=== PATIENT | female | born 2000 | race Caucasian/White ===

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

== ENCOUNTER → 2020-02-25 | Outpatient (REF) | payer OTHER | LOC: M LAB REF 12:40 | PROVIDERS: ATTEND Physician Assistant | DX: R30.0 Dysuria (principal) ==

== ENCOUNTER → 2020-04-30 | Outpatient (REF) | payer OTHER ==
[2020-04-30 11:08] LABS: BASO # 0.1 10^3/uL (0.0-0.2); BASO % 0.5 % (0.0-1.0); EOS # 0.3 10^3/uL (0.0-0.5); EOS % 2.3 % (0.0-3.0); HEMATOCRIT 45.1 % (36.0-47.0); HEMOGLOBIN 14.4 g/dl (12.0-15.5); LYMPH # 3.1 10^3/uL (1.5-5.0); LYMPH % 29.1 % (24.0-44.0); MEAN CORPUSCULAR HEMOGLOBIN 29.5 pg (27.0-33.0); MEAN CORPUSCULAR HGB CONC 31.9 g/dl (32.0-36.5); MEAN CORPUSCULAR VOLUME 92.4 fl (80.0-96.0); MONO # 0.6 10^3/uL (0.0-0.8); NEUTROPHILS # 6.7 10^3/uL (1.5-8.5); NEUTROPHILS % 61.8 % (36.0-66.0); PLATELET COUNT, AUTOMATED 321 10^3/uL (150-450); RED BLOOD COUNT 4.88 10^6/uL (4.00-5.40); WHITE BLOOD COUNT 10.8 10^3/uL (4.0-10.0)
[2020-04-30 11:39] LABS: ALBUMIN 4.2 GM/DL (3.2-5.2); ALT/SGPT 17 U/L (12-78); BILIRUBIN,TOTAL 0.9 MG/DL (0.2-1.0); BLOOD UREA NITROGEN 8 MG/DL (7-18); CALCIUM LEVEL 9.3 MG/DL (8.5-10.1); CARBON DIOXIDE LEVEL 28 MEQ/L (21-32); CHLORIDE LEVEL 107 MEQ/L (98-107); CHOLESTEROL LEVEL 148 MG/DL (<200); CHOLESTEROL RISK RATIO 2.466 (<5); CREATININE FOR GFR 0.78 MG/DL (0.55-1.30); FREE T4 1.01 NG/DL (0.78-1.33); GLUCOSE, FASTING 78 MG/DL (70-100); HDL CHOLESTEROL 60 MG/DL (>40); LDL CHOLESTEROL 76 MG/DL (<100); NON-HDL-C 88 MG/DL; POTASSIUM SERUM 4.5 MEQ/L (3.5-5.1); SODIUM LEVEL 138 MEQ/L (136-145); THYROID STIMULATING HORMONE 0.574 uIU/ML (0.463-3.98); TOTAL PROTEIN 6.9 GM/DL (6.4-8.2); TRIGLYCERIDES LEVEL 59 MG/DL (<150)
[2020-04-30 11:40] LABS: THYROID PEROXIDASE ANTIBODY 43.3 U/ML (<60.0); TOTAL 25(OH) VITAMIN D 36.8 NG/ML (30.0-100.0)
[2020-04-30 11:42] LABS: PTH INTACT 32.2 PG/ML (18.5-88.0)
[2020-04-30 11:43] LABS: TOTAL T3 94.3 NG/DL (86.0-192.0); VITAMIN B12 LEVEL 486 PG/ML (247-911)
[2020-04-30 12:19] LABS: HEMOGLOBIN A1c 5.1 %
[2020-05-04 10:55] LABS: THYROGLOBULIN ANTIBODY < 15.0 U/ML (<60.0)
== END ==
LOC: M SFHCPLAZ 09:10
PROVIDERS: ATTEND Family Medicine
DX: R63.4 Abnormal weight loss (principal); E55.9 Vitamin D deficiency, unspecified
CPT/HCPCS: 36415; 80053; 80061; 82306; 82607; 83036; 83970; 84439; 84443; 84480; 84681; 85025; 86376; 86800; G0463

== ENCOUNTER → 2020-06-03 | Outpatient (CLI) | payer OTHER ==
--- NOTE | 2020-06-03 13:03 | REPPI ---
INDICATION: SCHEURMANN'S DISEASE COMPARISON: None. TECHNIQUE: AP, lateral, bilateral oblique, and coned-down views of the lumbar spine. FINDINGS: Alignment and lordosis maintained. Vertebral bodies are intact. Disc spaces are relatively normal/age-appropriate. No acute fracture/compression injury or subluxation. No obvious spondylolysis or spondylolisthesis. No significant degenerative changes are appreciated. Incidental Schmorl's node at L2-3. IMPRESSION: Essentially age-appropriate lumbosacral spine radiograph series. <Electronically signed by Zi Dugan > 06/03/20 1703
--- NOTE | 2020-06-03 13:04 | REPPI ---
INDICATION: SCHEURMANN'S DISEASE COMPARISON: None. TECHNIQUE: AP, lateral, and swimmers views. FINDINGS: Alignment and kyphosis is maintained. Vertebral bodies intact. No acute fracture / compression injury or subluxation. No degenerative changes. Paravertebral soft tissues are normal. IMPRESSION: Normal thoracic spine series. <Electronically signed by Zi Dugan > 06/03/20 1300
--- NOTE | 2020-06-03 13:04 | REPPI ---
INDICATION: SCHEURMANN'S DISEASE. COMPARISON: None. TECHNIQUE: AP views of the thoracic and lumbar spine. FINDINGS: No evidence for scoliosis. Vertebral bodies are normal in the frontal projection. No paravertebral soft tissue abnormalities noted. IMPRESSION: No evidence for scoliosis. <Electronically signed by Zi Dugan > 06/03/20 [id number]
[2020-06-03 17:22] LABS: APPEARANCE, URINE CLEAR (CLEAR); BACTERIA, URINE AUTO NEGATIVE (NEGATIVE); BILIRUBIN, URINE AUTO NEGATIVE (NEGATIVE); BLOOD, URINE BLOOD NEGATIVE (NEGATIVE); COLOR, URINE YELLOW (YELLOW); GLUCOSE, URINE (UA) AUTO NEGATIVE (NEGATIVE); KETONE, URINE AUTO TRACE mg/dL (NEGATIVE); LEUKOCYTE ESTERASE, URINE AUTO NEGATIVE (NEGATIVE); MUCUS, URINE SMALL (NEGATIVE); NITRITE, URINE AUTO NEGATIVE (NEGATIVE); PROTEIN, URINE AUTO NEGATIVE (NEGATIVE); RBC, URINE AUTO 0 /HPF (0-3); SPECIFIC GRAVITY URINE AUTO 1.018 (1.002-1.035); SQUAMOUS EPITHELIAL CELL UR AU 0 /HPF (0-6); UROBILINOGEN, URINE AUTO 0.2 mg/dL (0.0-2.0); WBC, URINE AUTO 1 /HPF (0-3)
== END ==
LOC: M PLAIMG 11:59
PROVIDERS: ATTEND Family Medicine
DX: N30.90 Cystitis, unspecified without hematuria (principal); M42.00 Juvenile osteochondrosis of spine, site unspecified

== ENCOUNTER → 2020-06-15 | Outpatient (CLI) | payer SELFPAY | LOC: M LABSMTC 11:28 | PROVIDERS: ATTEND Pediatrics | DX: Z20.822 Contact with and (suspected) exposure to COVID-19 (principal) ==

== ENCOUNTER → 2020-12-14 | Outpatient (CLI) | payer OTHER ==
--- NOTE | 2020-12-14 18:30 | REPVR ---
PROCEDURE INFORMATION: Exam: CT Temporal Bones Without Contrast. Exam date and time: 12/14/2020 11:35 AM Age: 20 years old Clinical indication: Mass, lump, or swelling; Other: L ear swelling; Prior surgery; Surgery date: 6+ months; Surgery type: Age 7 and age 15- surgery to repair hole in ear using graft from cheek, also HX cholesteatoma in left; Additional info: Cholesteatoma, hearing loss left ear TECHNIQUE: Imaging protocol: Computed tomography images of the temporal bones without contrast. Radiation optimization: All CT scans at this facility use at least one of these dose optimization techniques: automated exposure control; mA and/or kV adjustment per patient size (includes targeted exams where dose is matched to clinical indication); or iterative reconstruction. COMPARISON: CT Head without contrast 10/03/2016 9:49 PM FINDINGS: Right ossicles and middle ear: Normal. The middle ear ossicles are intact. Right external auditory canal: Normal. Right facial nerve canal: Normal. Right jugular foramen: No jugular dehiscence. Right carotid canal: No aberrant carotid canal. Right mastoid air cells: Right mastoid air cells are clear. 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 Tiny linear band of soft tissue attenuation within the expected region of the malleolus most likely reflects chronic scar tissue formation. No middle ear effusion. Left external auditory canal: Small focus of soft tissue attenuation in the anterior left external auditory canal. Left facial nerve canal: Normal. Left jugular foramen: No jugular dehiscence. Left carotid canal: No aberrant carotid canal. Left mastoid air cells: Chronic postoperative changes compatible with left mastoidectomy. Residual left mastoid air cells are clear. IMPRESSION: 1. Chronic postoperative changes compatible with left mastoidectomy. 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 Tiny linear band of soft tissue attenuation within the expected region of the malleolus most likely reflects chronic scar tissue formation. Continued interval follow-up at the discretion of ENT. 2. Small focus of soft tissue attenuation in the anterior left external auditory canal, possibly small degree of cerumen. Electronically signed by: Ramon Hoff On 12/14/2020 18:30:01 PM
== END ==
LOC: M PLAIMG 10:38
PROVIDERS: ATTEND Family Medicine
DX: H71.92 Unspecified cholesteatoma, left ear (principal); H90.72 Mixed conductive and sensorineural hearing loss, unilateral, left ear, with unrestricted hearing on the contralateral side; Z90.09 Acquired absence of other part of head and neck

== ENCOUNTER → 2021-01-04 | Outpatient (CLI) | payer OTHER | LOC: M PLAIMG 14:30 | PROVIDERS: ATTEND Nurse Practitioner Family | DX: H71.92 Unspecified cholesteatoma, left ear (principal); Z53.9 Procedure and treatment not carried out, unspecified reason ==